=== PATIENT | female | born 1960 | race Caucasian/White ===

== ENCOUNTER 2019-11-15 02:36 | Emergency (ER) | payer OTHER, SELFPAY ==
--- NOTE | ~2019-11-15 | CT_ITS ---
EXAMINATION: CT cervical spine wo con DATE: 11/15/2019 03:09 INDICATION: Neck pain TECHNIQUE: Computed tomography (CT) of the cervical spine was performed without intravenous contrast. The dose-length product (DLP) was 461.58 mGy-cm. Automated exposure control and iterative reconstruc tion technique were employed. COMPARISON: 03/05/2008 FINDINGS: There is no fracture. 2 mm of chronic anterolisthesis are noted at C7-T1. There is moderate chronic loss of intervertebral disc space height at C5-6 and mild chronic loss of intervertebral dis c space height at C6-7. The odontoid is intact. The prevertebral soft tissues are normal. Small degen erative osteophytes project from the anterior endplates of multiple vertebral bodies. Moderate uncove rtebral joint osteoarthritis is noted at C5-6 and C6-7. There is moderate multilevel facet osteoarthr itis. IMPRESSION: 1. Moderate cervical spondylosis without acute findings or significant interval change. Reviewed, dictated and finalized at location A.
[2019-11-15 02:39] VITALS: BP 188/100; PULSE 95; RESP 18; TEMP 35.9; O2SAT 100
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
[2019-11-15 04:35] VITALS: BP 144/98; PULSE 78; RESP 18; O2SAT 98
[2019-11-15] MEDS: ACETAMINOPHEN 500 MG TABLET 1000 MG PO (04:35)
== END 2019-11-15 04:36 | disposition home or self-care (01) ==
PROVIDERS: Emergency Provider Emergency Medicine
DX: S16.1XXA Strain of muscle, fascia and tendon at neck level, initial encounter (principal); V49.40XA Driver injured in collision with unspecified motor vehicles in traffic accident, initial encounter; M19.90 Unspecified osteoarthritis, unspecified site
CPT/HCPCS: 72125; 99284; A9270